=== PATIENT | male | born 1990 | race Caucasian/White ===

== ENCOUNTER → 2023-12-02 | Outpatient (REF) | payer OTHER ==
[~2023-12-02] MED LIST: ADDE1TAB14 PO; EFFE150C3 PO; EFFE37.52 PO; ESTR1TD TD; GABA-1171 PO; GABA-282 PO; GABA600T4 PO; INVE234I IM; LAMO100T3 PO; LAMO200T3 PO; PROP40TA62 PO; REST15CA PO; RISP0.2548 PO; SERO1TAB3 PO; SERO50TA PO; SPIR100T3 PO; SPIR50TA4 PO; TEMA15CA2 PO; TRIL1TAB PO; VITA50005 PO
[2023-12-02 13:27] LABS: BLOOD UREA NITROGEN 10 MG/DL (9-23); CALCIUM LEVEL 9.1 MG/DL (8.5-10.1); CARBON DIOXIDE LEVEL 29 MMOL/L (20-31); CHLORIDE LEVEL 102 MMOL/L (98-107); CREATININE FOR GFR 0.59 MG/DL (0.70-1.30); GLOMERULAR FILTRATION RATE > 60.0 (>60); GLUCOSE, FASTING 86 MG/DL (60-100); POTASSIUM SERUM 4.9 MMOL/L (3.5-5.1); SODIUM LEVEL 135 MMOL/L (136-145)
[2023-12-02 13:32] LABS: TOTAL 25(OH) VITAMIN D 37.5 NG/ML (20.0-100.0)
== END ==
LOC: M LABDRWAD 12:50
PROVIDERS: ATTEND Internal Medicine Endocrinology, Diabetes & Metabolism
DX: M81.8 Other osteoporosis without current pathological fracture (principal)